=== PATIENT | male | born 2000 | race African-American/Black ===

== ENCOUNTER 2020-08-08 00:36 | Emergency (ER) | payer OTHER ==
[~2020-08-08] VITALS: Ht 182.9 cm; Wt 90.7 kg
[2020-08-08 00:37] VITALS: Ht 182.9 cm; Wt 90.7 kg
[2020-08-08 01:28] VITALS: BP 135/80
== END 2020-08-08 01:28 | disposition home or self-care (01) ==
LOC: ED 00:36
DX: S60.410A Abrasion of right index finger, initial encounter (principal); J45.909 Unspecified asthma, uncomplicated; X58.XXXA Exposure to other specified factors, initial encounter; Y93.89 Activity, other specified; Y92.89 Other specified places as the place of occurrence of the external cause; Y99.8 Other external cause status